=== PATIENT | male | born 1955 | race Caucasian/White ===

== ENCOUNTER 2016-07-08 21:58 | Emergency (ER) | payer BC ==
[2016-07-08 21:58] VITALS: O2SAT 97
[2016-07-08] MEDS ORDERED: HYDROMORPHONE HCL 2 MG/ML 1 ML SOL ONE (22:10)
[2016-07-08] MEDS ORDERED: HYDROMORPHONE HCL 2 MG/ML 1 ML SOL IV PRN (22:10)
[2016-07-08] MEDS ORDERED: HYDRALAZINE HYDROCHLORIDE 20 MG/ML SOL IV SCH ×2 (22:15→22:45)
[2016-07-08] MEDS ORDERED: METOPROLOL TARTRATE 5 MG/5 ML SOL IV SCH (22:15)
[2016-07-08] MEDS ORDERED: METOPROLOL TARTRATE 5 MG/5 ML SOL IV ONE (22:20)
[2016-07-08 22:25] LABS: BASOPHILS % (AUTO) 1 % (0-3); EOSINOPHILS % (AUTO) 7 % (0-9); HEMATOCRIT 32 % (39-53); MEAN CORPUSCULAR HGB CONC 32.8 gm/dl (32.0-36.0); MEAN CORPUSCULAR VOLUME 86 fL (80-100); MONOCYTES % (AUTO) 12.7 % (0-12); NEUTROPHILS % (AUTO) 49.7 % (37-80)
[2016-07-08] MEDS ORDERED: LABETALOL HYDROCHLORIDE 5 MG/ML SOL IV ONE ×2 (22:37)
[2016-07-08 22:41] LABS: ALBUMIN 2.9 gm/dl (3.4-5.0); CALCIUM 8.4 mg/dl (8.5-10.1); POTASSIUM 4.4 mMol/L (3.5-5.1)
[2016-07-09 00:54] VITALS: RESP 36; TEMP 97.4
[2016-07-09 00:59] VITALS: BP 154/70; PULSE 80
== END 2016-07-08 22:55 | disposition short-term general hospital (02) ==
LOC: ED 21:58
DX: R07.9 Chest pain, unspecified (principal); R10.9 Unspecified abdominal pain; R06.00 Dyspnea, unspecified; Z86.79 Personal history of other diseases of the circulatory system; R79.89 Other specified abnormal findings of blood chemistry
CPT/HCPCS: 99291 ×2; 74160; 80053; 82150; 83690; 83880; 84484; 85025; 85610; 85730; J1170; Q9967; 71260; 96374; 96375; J0360

== ENCOUNTER 2016-07-14 12:43 | Emergency (ER) | payer BC ==
[2016-07-14 12:53] VITALS: RESP 18
[2016-07-14 13:32] VITALS: TEMP 98.3
[2016-07-14 13:36] LABS: BASOPHILS % (AUTO) 1 % (0-3); EOSINOPHILS % (AUTO) 4 % (0-9); HEMATOCRIT 33 % (39-53); MEAN CORPUSCULAR HGB CONC 32.9 gm/dl (32.0-36.0); MEAN CORPUSCULAR VOLUME 84 fL (80-100); MONOCYTES % (AUTO) 9.7 % (0-12)
[2016-07-14 13:46] LABS: ALBUMIN 3.1 gm/dl (3.4-5.0); CALCIUM 8.1 mg/dl (8.5-10.1); POTASSIUM 3.9 mMol/L (3.5-5.1)
[2016-07-14 13:47] VITALS: BP 122/59; PULSE 68; O2SAT 98
== END 2016-07-14 14:42 | disposition home or self-care (01) ==
LOC: ED 12:43
DX: R10.31 Right lower quadrant pain (principal); R07.81 Pleurodynia
CPT/HCPCS: 36415; 71020; 80053; 82150; 85025; 99283; 99284